=== PATIENT | female | born 1990 ===

== ENCOUNTER → 2016-09-01 | Outpatient (REF) | payer OTHER ==
[~2016-09-01] MED LIST: COLA100C3 PO; IBUP600T26 PO; PRENTAB7 PO
[2016-09-01 19:56] LABS: ERYTHROCYTE SEDIMENTATION RATE 3 mm/hr (0-20)
== END ==
LOC: M LAB REF 16:56
PROVIDERS: ATTEND Internal Medicine Medical Oncology
DX: D70.9 Neutropenia, unspecified (principal)

== ENCOUNTER → 2016-09-08 | Outpatient (REF) | payer OTHER ==
[2016-09-08 20:07] LABS: FOLATE > 24.0 NG/ML; VITAMIN B12 LEVEL 339 PG/ML
== END ==
LOC: M LAB REF 16:25
PROVIDERS: ATTEND Internal Medicine Medical Oncology
DX: D70.9 Neutropenia, unspecified (principal); D72.819 Decreased white blood cell count, unspecified